=== PATIENT | female | born 1940 | race Caucasian/White ===

== ENCOUNTER 2019-10-17 10:21 | Emergency (ER) | payer MEDICARE, MEDICAID, SELFPAY ==
[2019-10-17 10:49] VITALS: BP 179/81; PULSE 70; RESP 16; TEMP 37.2; O2SAT 99; BMI 20.1
--- NOTE | 2019-10-17 11:05 | ED_ITS ---
Entered by Torie Caruso, acting as scribe for Isreal Mcpherson MD HPI - Eye Problem General: Chief complaint: Eye Problems Stated complaint: Blurred vision/dizzy Time Seen by Provider: 10/17/19 11:04 Source: patient, family and RN notes reviewed Mode of arrival: ambulatory Limitations: no limitations History of Present Illness: HPI Narrative: 79 yo female presents to ED with complaints of dizziness and blurred vision. She going on for 2 months but has increased over the last 2 weeks. She is unable to read or tell the difference in change. She had cataract surgery a couple of years ago with Dr Vernon. She was going to call him yesterday but she was unable to read the numbers on his card. chief complaint: vision change Onset (ago): week(s) (2) Onset description: gradual Duration: constant and progressively worsening Location: both eyes Eye Symptoms: blurry vision Place: home Mechanism: none Severity: severe Context: other (cataract surgery 2 years ago) Associated symptoms: Reports other (dizziness); Denies fever(s), headache(s), nausea, neck pain or vomiting Treatments Prior to Arrival: none Review of Systems Const: Denies: fever, chills, body aches or change in appetite Eyes: Denies: eye discomfort ENMT: Denies: throat pain or dental pain Card: Denies: chest pain Resp: Denies: shortness of breath GI: Denies: abdominal pain, nausea, vomiting or diarrhea : Denies: painful urination Musc: Denies: neck pain or back pain Skin/Breast: Denies: rash Neuro: Denies: headache Psych: Denies: depression Andreas/Lymph: Denies: easy bruising All/Imm: Denies: hives PFSH ED PFSH: Social History Smoking and tobacco status: former smoker Physical Exam Const: COMMON NORMALS: no apparent distress, oriented x3 and healthy appearing HENMT: COMMON NORMALS: normocephalic and head/scalp atraumatic HEAD & SCALP: normocephalic and atraumatic Eye: COMMON NORMALS: PERRL and EOMs intact bilaterally PUPIL: Yes PERRL Neck/C-Spine: COMMON NORMALS: full ROM and supple Chest: COMMONS NORMALS: inspection of chest normal and palpation of chest normal Resp: COMMON NORMALS: normal respiratory effort, no retractions, no use of accessory muscles and clear to auscultation bilaterally AUSCULTATION: clear to auscultation bilaterally Cardio: COMMON NORMALS: regular rate, regular rhythm and no murmurs RATE: regular rate RHYTHM: regular rhythm GI: COMMON NORMALS: normal to inspection, nondistended, normoactive bowel sounds, soft to palpation, non-tender and no masses PALPATION: Yes soft Extremity: COMMON NORMALS: normal to inspection and full ROM Neuro: COMMON NORMALS: oriented x3, moves all extremities and no focal motor deficits Psych: COMMON NORMALS: mental status grossly normal, thought process normal and cooperative THOUGHT PROCESS: normal thought process Skin: COMMON NORMALS: no rashes or lesions noted and no wounds GENERAL SKIN EXAM: no rashes or lesions noted Course Vital Signs: Vital signs: Vital Signs Temperature 98.9 F 10/17/19 10:49 Pulse Rate 70 10/17/19 11:09 Respiratory Rate 20 H 10/17/19 11:09 Blood Pressure 167/86 10/17/19 11:09 Pulse Oximetry 97 10/17/19 11:09 MDM - Eye Problem MDM Narrative: Medical decision making narrative: Patient presents here with vision problems in both eyes. CT head here is negative and neuro exam is benign. This appears to be an eye problem and does have history of cataracts and cataract surgery. Patient is to follow-up with Dr. Vernon and this is been going on for months. She is to return if worsening. Lab Data: Labs: Lab Results 10/17/19 10/17/19 Range/Units 11:35 11:35 WBC 7.8 (4.0-10.0) 10^3/ uL RBC 4.09 L (4.1-5.3) 10^6/u L Hgb 13.6 (11.5-15.3) g/dL Hct 39.7 (37.0-47.0) % MCV 97.1 (81-99) fL MCH 33.3 (28.0-34.0) pg MCHC 34.3 (30.0-36.0) g/dL RDW 13.0 (12.1-15.1) % Plt Count 239 (130-400) 10^3/c mm MPV 9.1 (7.4-10.4) fL Neut % (Auto) 76.5 % Lymph % (Auto) 14.5 % [place] % (Auto) 7.9 % Eos % (Auto) 0.3 % Baso % (Auto) 0.4 % Neut # (Auto) 6.0 (1.8-7.7) 10^3/u L Lymph # (Auto) 1.1 (0.8-4.8) 10^3/u L [place] # (Auto) 0.6 (0.2-0.9) 10^3/u L Eos # (Auto) 0.0 (0.0-0.8) 10^3/u L Baso # (Auto) 0.0 (0.0-0.1) 10^3/u L Nucleated RBC % (a uto) 0 % Nucleated RBCs # 0.0 /100WBC Sodium 138 (136-145) mmol/L Potassium 3.9 (3.5-5.1) mmol/L Chloride 102 (98-107) mmol/L Carbon Dioxide 24 (22-29) mmol/L Anion Gap 15.9 (5-19) BUN 10 (8-23) mg/dL Creatinine 0.8 (0.5-0.9) mg/dL Glucose 118 H (65-115) mg/dL Calculated Osmolal ity 283 L (285-295) mOsm/k g Calcium 10.0 (8.5-10.5) mg/dL Imaging Data^: CT Head: Radiologist's impression: Signed Patient: Cate Lock Unit #: [id number] : 1940 Age/Sex: 79 / F ADM Date: 10/17/19 Loc: ER Room/Bed: Attending Dr: Ordering Provider/Ordering MD: Isreal Mcpherson MD Date of Service: 10/17/19 Procedure(s): CT head wo con* [id number] Accession Number(s): [id number] Report Number: [id number] PROCEDURE INFORMATION: Exam: CT Head Without Contrast Exam date and time: 10/17/2019 11:34 AM Age: 79 years old Clinical indication: Dizziness; Additional info: Vision disturbance TECHNIQUE: Imaging protocol: Computed tomography of the head without contrast. Total DLP: 726.88 mGy-cm Radiation optimization: All CT scans at this facility use at least one of these dose optimization techniques: automated exposure control; mA and/or kV adjustment per patient size (includes targeted exams where dose is matched to clinical indication); or iterative reconstruction. COMPARISON: No relevant prior studies available. FINDINGS: Brain: There is mild cortical atrophy. No hemorrhage. Unremarkable white matter. No mass effect. Midline shift: There is no shift of midline structures. Ventricles: Normal. No ventriculomegaly. Bones/joints: Unremarkable. No acute fracture. Sinuses: Visualized sinuses are unremarkable. No fluid levels. Mastoid air cells: Visualized mastoid air cells are well aerated. Soft tissues: Unremarkable. CT/CT head wo con* [id number] IMPRESSION: Discharge Plan Discharge Patient Disposition: Home, Self-Care Clinical Impression: Vision disturbance Condition: Stable Discharge Orders: Discharge Order (Routine); Ordered 10/17/19 Ordered By: Isreal Mcpherson Referrals: Kraig Vernon MD [Physician] - Kraig Mina Jr, MD [Primary Care Provider] - Discharge Diet: Advance as tolerated Discharge Activity: Resume usual activity Patient Instructions: Blurred Vision (ED), Vision Problems Coding Level of Care Code ED Oiler Bander for Chg Fwd Exam Comprehensive The documentation recorded by the Zuly yost Valerie R, accurately reflects the service I personally performed and the decisions made by Vida hdz Korby, MD
[2019-10-17 11:09] VITALS: BP 167/86; PULSE 70; RESP 20; O2SAT 96; O2SAT 97
--- NOTE | 2019-10-17 11:10 | CTR_ITS ---
PROCEDURE INFORMATION: Exam: CT Head Without Contrast Exam date and time: 10/17/2019 11:34 AM Age: 79 years old Clinical indication: Dizziness; Additional info: Vision disturbance TECHNIQUE: Imaging protocol: Computed tomography of the head without contrast. Total DLP: 726.88 mGy-cm Radiation optimization: All CT scans at this facility use at least one of these dose optimization techniques: automated exposure control; mA and/or kV adjustment per patient size (includes targeted exams where dose is matched to clinical indication); or iterative reconstruction. COMPARISON: No relevant prior studies available. FINDINGS: Brain: There is mild cortical atrophy. No hemorrhage. Unremarkable white matter. No mass effect. Midline shift: There is no shift of midline structures. Ventricles: Normal. No ventriculomegaly. Bones/joints: Unremarkable. No acute fracture. Sinuses: Visualized sinuses are unremarkable. No fluid levels. Mastoid air cells: Visualized mastoid air cells are well aerated. Soft tissues: Unremarkable. CT/CT head wo con* [id number] IMPRESSION: No acute intracranial abnormality. Radiation Dose CTDIVOL = (mGy): DLP = 726.88 (mGy-cm)
--- NOTE | 2019-10-17 11:33 | PC.NURSE ---
visual acuity tested at verbal order of ED Physician. Pt tested 20/200. Pt states left eye is worse than right eye with blurriness
--- NOTE | 2019-10-17 11:41 | PC.NURSE ---
pt transported to CT by stretcher with tech
[2019-10-17 11:46] LABS: Basophils % 0.4 %; Eosinophils % 0.3 %; Hematocrit 39.7 % (37.0-47.0); Hemoglobin 13.6 g/dL (11.5-15.3); Lymphocytes # 1.1 10^3/uL (0.8-4.8); Lymphocytes % 14.5 %; Mean Corpuscular HGB Conc 34.3 g/dL (30.0-36.0); Mean Corpuscular Hemoglobin 33.3 pg (28.0-34.0); Mean Corpuscular Volume 97.1 fL (81-99); Mean Platelet Volume 9.1 fL (7.4-10.4); Monocytes # 0.6 10^3/uL (0.2-0.9); Monocytes % 7.9 %; Neutrophils % 76.5 %; Nucleated Red Blood Cells % 0 %; Platelet Count 239 10^3/cmm (130-400); Red Blood Count 4.09 10^6/uL (4.1-5.3); White Blood Count 7.8 10^3/uL (4.0-10.0)
[2019-10-17 12:02] LABS: Anion Gap 15.9 (5-19); Blood Urea Nitrogen 10 mg/dL (8-23); Carbon Dioxide 24 mmol/L (22-29); Chloride 102 mmol/L (98-107); Creatinine Clr Calc Pharmacy 45.0249; Glucose 118 mg/dL (65-115); Osmolality Calculated 283 mOsm/kg (285-295); Potassium 3.9 mmol/L (3.5-5.1); Sodium 138 mmol/L (136-145)
--- NOTE | 2019-10-17 12:43 | PC.NURSE ---
pt states waiting on discharge.
[2019-10-17 12:44] VITALS: BP 142/67; PULSE 62; RESP 22; O2SAT 97
[2019-10-17 12:50] VITALS: BP 142/67; PULSE 68; RESP 18; O2SAT 98
== END 2019-10-17 12:50 | disposition home or self-care (01) ==
LOC: ER 12:40
PROVIDERS: Emergency Provider Emergency Medicine; PCP Family Medicine
DX: H53.9 Unspecified visual disturbance (principal); Z87.891 Personal history of nicotine dependence; Z86.69 Personal history of other diseases of the nervous system and sense organs; Z98.890 Other specified postprocedural states
CPT/HCPCS: 36415; 70450; 80048; 85025; 99282; 99283